=== PATIENT | female | born 1990 | race Caucasian/White ===

== ENCOUNTER 2017-03-16 02:59 | Inpatient (IN) | payer OTHER ==
[~2017-03-16] VITALS: Ht 149.9 cm; Wt 56.8 kg
[2017-03-16 04:19] LABS: BASOPHIL % 0.2 % (0-2); PLATELET COUNT 232 x10^3mcL (130-400); RED CELL DISTRIBUTION WIDTH 12.7 % (11.5-14.5)
[2017-03-16 04:25] LABS: UA SPECIFIC GRAVITY 1.025 (1.005-1.035); microscopic required? YES; urine erythrocyte 3+ (NEGATIVE)
[2017-03-16 04:28] LABS: CARBON DIOXIDE 23.2 mmol/L (21-32); CREATININE SERUM 1.3 mg/dL (0.6-1.0); POTASSIUM SERUM 3.3 mmol/L (3.5-5.1)
[2017-03-16 04:44] LABS: ALBUMIN 4.1 g/dL (3.4-5.0); BILIRUBIN TOTAL 0.6 mg/dL (0.20-1.00)
[2017-03-16 04:48] LABS: TOTAL PROTEIN, SERUM 8.5 g/dL (6.4-8.2)
[2017-03-16 07:11] LABS: AMPHETAMINE QUAL UR NONE DETECTED (NEG <=1000)
[2017-03-16 07:15] LABS: T3 TOTAL 1.03 ng/mL
[2017-03-16 07:58] LABS: FREE T4 1.41 ng/dL (0.76-1.46); FREE THYROXINE INDEX 3.6 ug/dL (1.4-4.5); T4(THYROXINE) 9.5 ug/dL (4.7-13.3)
[2017-03-16 08:41] LABS: PHOSPHOROUS 1.7 mg/dL (2.5-4.9)
[2017-03-16 08:44] LABS: CHOLESTEROL/HDL RATIO 2.1
[2017-03-16 10:37] VITALS: BP 92/60
[2017-03-16 14:17] VITALS: BP 95/59
[2017-03-16 21:02] VITALS: BP 119/89
[2017-03-17 05:48] VITALS: BP 122/74
[2017-03-17 06:14] LABS: BASOPHIL % 0.3 % (0-2); PLATELET COUNT 191 x10^3mcL (130-400); RED CELL DISTRIBUTION WIDTH 13.1 % (11.5-14.5)
[2017-03-17 06:30] LABS: CALCIUM 8.5 mg/dL (8.5-10.1); CARBON DIOXIDE 22.1 mmol/L (21-32); CREATININE SERUM 1.2 mg/dL (0.6-1.0); PHOSPHOROUS 2.8 mg/dL (2.5-4.9)
[2017-03-17 08:53] VITALS: BP 131/83
[2017-03-17 13:43] VITALS: BP 106/70
[2017-03-17 16:59] VITALS: BP 117/77
[2017-03-17 20:44] VITALS: BP 116/78
[2017-03-18 05:29] VITALS: BP 112/70
[2017-03-18 06:20] LABS: BASOPHIL % 0.3 % (0-2); PLATELET COUNT 206 x10^3mcL (130-400); RED CELL DISTRIBUTION WIDTH 12.6 % (11.5-14.5)
[2017-03-18 06:38] LABS: CALCIUM 8.1 mg/dL (8.5-10.1); CARBON DIOXIDE 21.5 mmol/L (21-32); CHLORIDE SERUM 106 mmol/L (98-107); CREATININE SERUM 0.8 mg/dL (0.6-1.0); GFR1 > 60 mL/min; GLUCOSE SERUM 104 mg/dL (74-106); MAGNESIUM 1.8 mg/dL (1.8-2.4); PHOSPHOROUS 3.1 mg/dL (2.5-4.9); POTASSIUM SERUM 3.5 mmol/L (3.5-5.1); SODIUM SERUM 137 mmol/L (136-145)
[2017-03-18 08:53] VITALS: BP 130/86
[2017-03-18 13:57] VITALS: BP 114/66
[2017-03-18 16:35] VITALS: BP 109/64
[2017-03-18 22:30] VITALS: BP 124/92
[2017-03-19 06:14] VITALS: BP 131/85
[2017-03-19 08:32] VITALS: BP 123/75
[2017-03-19] MEDS ORDERED: FLO4 PO (10:12)
[2017-03-19] MEDS ORDERED: PYRIDIUM100 MG PO (10:15)
[2017-03-19] MEDS ORDERED: IBUPROFEN400 MG PO (10:16)
[2017-03-19] MEDS ORDERED: NORCO1 TA2 PO (10:18)
[2017-03-19 10:36] VITALS: BP 123/75
== END 2017-03-19 13:41 | disposition home or self-care (01) | DRG 465 ==
LOC: ED 02:59 → DU 06:05 → MU 03-19 08:44
PROVIDERS: Emergency Medicine; ADMIT Family Medicine
DX: N13.2 Hydronephrosis with renal and ureteral calculous obstruction (principal); N17.0 Acute kidney failure with tubular necrosis; E83.39 Other disorders of phosphorus metabolism; N39.0 Urinary tract infection, site not specified; R31.9 Hematuria, unspecified; R73.03 Prediabetes; E87.6 Hypokalemia; Z68.25 Body mass index [BMI] 25.0-25.9, adult
CPT/HCPCS: 82962; 83880; 84439; J0696; J1885; J2270; J2405; J2765; J7030; Q0092